=== PATIENT | male | born 1990 ===

== ENCOUNTER 2020-07-25 12:33 | Outpatient (CLI) | payer OTHER | END 2020-07-25 14:01 | disposition home or self-care (01) | LOC: EDBD 12:33 → OFIC 805 12:33 | PROVIDERS: ATTEND Otolaryngology Otology & Neurotology | DX: K14.8 Other diseases of tongue (principal); R22.1 Localized swelling, mass and lump, neck ==

== ENCOUNTER 2020-07-25 14:34 | Outpatient (CLI) | payer OTHER | END 2020-07-25 18:00 | disposition home or self-care (01) | LOC: LAB 14:34 | PROVIDERS: ATTEND Otolaryngology Otology & Neurotology | DX: Q89.2 Congenital malformations of other endocrine glands (principal) ==

== ENCOUNTER 2020-07-26 09:54 | Outpatient (CLI) | payer OTHER | END 2020-07-26 10:13 | disposition home or self-care (01) | LOC: TOM 09:54 | PROVIDERS: ATTEND Otolaryngology Otology & Neurotology | DX: Q89.2 Congenital malformations of other endocrine glands (principal) ==